=== PATIENT | female | born 1985 | race African-American/Black ===

== ENCOUNTER 2023-08-16 21:19 | Emergency (ER) | payer MEDICAID ==
[2023-08-16] MEDS: Ondansetron 4 MG Tab.DIS PO ONE (22:07)
[2023-08-16] MEDS: Morphine 2 MG/ML SYRINGE IM ONE (22:07)
[2023-08-16] MEDS: Ketorolac 30 MG/ML SDV IM ONE (22:07)
[2023-08-16] MEDS: Lidocaine/Epineph/Tetracaine 3 ML Syringe TOP ONE (23:08)
[2023-08-17] MEDS: Lidocaine 1% 5 ML VIAL INJECT ONE (00:08)
[2023-08-17] MEDS: diphenhydrAMINE 50 MG/ML SDV IM ONE (00:54)
[2023-08-17] MEDS: Cefdinir 300 MG Cap PO ONE (01:06)
== END 2023-08-17 01:41 | disposition home or self-care (01) ==
LOC: MW.ED 21:19
DX: S62.522B Displaced fracture of distal phalanx of left thumb, initial encounter for open fracture (principal); I10 Essential (primary) hypertension; Z79.899 Other long term (current) drug therapy; W23.0XXA Caught, crushed, jammed, or pinched between moving objects, initial encounter
CPT/HCPCS: 12001; 73130; 96372; 99283; A9270; J1200; J1885; J2270; J3490

== ENCOUNTER 2024-09-02 08:49 | Emergency (ER) | payer OTHER, MEDICAID ==
[2024-09-02] MEDS: Acetaminophen 325 MG Tab PO ONE (09:08)
== END 2024-09-02 09:45 | disposition home or self-care (01) ==
LOC: MW.ED 08:49
DX: S80.11XA Contusion of right lower leg, initial encounter (principal); I10 Essential (primary) hypertension; W20.8XXA Other cause of strike by thrown, projected or falling object, initial encounter
CPT/HCPCS: 73600-26-RT; 73600-RT; 99283; A9270-GY